=== PATIENT | female | born 1980 | race Caucasian/White ===

== ENCOUNTER 2021-05-25 17:52 | Emergency (ER) | payer OTHER, SELFPAY ==
--- NOTE | 2021-05-25 17:58 | ED.FEMALEGU ---
HPI - Female Genitourinary General Chief complaint: Urogenital-Female Stated complaint: poss uti Time Seen by Provider: 05/25/21 17:58 Source: patient and RN notes reviewed Related Data Home Medications Medication Instructions Recorded Confirmed cholecalciferol (vitamin D3) 125 mcg PO DAILY 05/25/21 05/25/21 cyanocobalamin (vitamin B-12) 05/25/21 furosemide [Lasix] 20 mg PO DAILY 05/25/21 05/25/21 metformin 500 mg PO BID 05/25/21 05/25/21 topiramate [Topamax] 25 mg PO BID 05/25/21 05/25/21 Allergies Allergy/AdvReac Type Severity Reaction Status Date / Time No Known Allergies Allergy Verified 05/25/21 18:06 Review of Systems Review of Systems: CONSTITUTIONAL: Denies fever, chills, or sweats. EYES: Denies visual changes, redness, or discharge. ENT: Denies rhinorrhea, congestion, sore throat, or otalgia. CARDIOVASCULAR: Denies chest pain, palpitations, or edema. RESPIRATORY: Denies cough or dyspnea. GASTROINTESTINAL: Denies abdominal pain, nausea, vomiting, or diarrhea. GENITOURINARY: Reports dysuria, urgency, frequency SKIN: Denies rash or itching. MUSCULOSKELETAL: Denies back pain, joint pain, or myalgia. NEUROLOGIC: Denies headache, numbness, or weakness. All other systems reviewed are negative, except as documented in HPI. PMFSH Comments At the time of my signature, I reviewed and agree with the nursing past medical, surgical, social, and family history. There is no relevant family history pertinent to the patient complaint. Exam Narrative: GENERAL: This is a well-nourished, well-developed patient, in no apparent distress. HEAD: normocephalic, atraumatic. EYES: PERRL. Sclera clear/white. Vision is grossly intact. EARS: External ears normal NOSE: External nose normal with no obvious nasal discharge, nares without redness, no rhinorrhea. THROAT: Mucous membranes moist NECK: Neck supple CARDIOVASCULAR: Regular rate and rhythm without murmurs, gallops, or rubs. RESPIRATORY: Clear to auscultation. Breath sounds equal bilaterally. No wheezes, rales, or rhonchi. GASTROINTESTINAL: Abdomen soft, non-tender, nondistended. Bowel sounds are active. SKIN: warm, intact with no suspicious lesions or rash, good texture and turgor. NEURO: awake, alert, and oriented to person, place and time. There were no obvious focal neurologic abnormalities. EXTREMITIES: No clubbing, cyanosis, or edema. BACK: No flank tenderness. Course Course Level of Care: Express Care Visit Vital Signs Vital signs: Vital Signs Temperature 97.7 F 05/25/21 18:00 Pulse Rate 74 05/25/21 18:00 Respiratory Rate 18 05/25/21 18:00 Blood Pressure 144/68 H 05/25/21 18:00 Pulse Oximetry 100 05/25/21 18:00 Temperature 97.7 F 05/25/21 18:10 Pulse Rate 74 05/25/21 18:10 Respiratory Rate 18 05/25/21 18:10 Blood Pressure 144/68 H 05/25/21 18:10 Pulse Oximetry 100 05/25/21 18:10 Reviewed-patient is informed that they may have pre-hypertension or hypertension based on a blood pressure reading in the department. I recommend the patient call the primary care provider listed on their discharge instructions or a physician of their choice this week to arrange follow-up for further evaluation of possible pre-hypertension or hypertension. MDM - Female Genitourinary MDM Narrative Medical decision making narrative: Advised patient complete the oral antibiotic regimen as prescribed. Use the Pyridium as needed for bladder spasms. Do not use Azo in conjunction with the Pyridium. We will culture the urine and call if medication needs to be changed, based on culture results. Be sure to eat and drink with medication. Increase your water intake and avoid sugary and caffeinated drinks. Do not sit in soapy bath water. Wear cotton underwear nonocclusive clothing. If you develop any increase in symptoms associated with blood in urine, nausea, vomiting, fever or abdominal pain?go to the emergency room. Follow-up with your PCP within 2 to 5 da
[2021-05-25 18:00] VITALS: BP 144/68; PULSE 74; RESP 18; TEMP 36.5; O2SAT 100
[2021-05-25 18:10] VITALS: BP 144/68; PULSE 74; RESP 18; TEMP 36.5; O2SAT 100
== END 2021-05-25 18:21 | disposition home or self-care (01) ==
PROVIDERS: Emergency Provider Nurse Practitioner Family; PCP Internal Medicine
DX: N39.0 Urinary tract infection, site not specified (principal); E24.9 Cushing's syndrome, unspecified
CPT/HCPCS: 81003; 87086; 87147; 87181; 87186; 99213; G0463